=== PATIENT | male | born 1945 ===

== ENCOUNTER 2020-03-01 19:49 | Inpatient (IN) | payer MEDICARE ==
[2020-03-01] MEDS ORDERED: ASPIRIN 325 MG TAB PO ONE (20:29)
[2020-03-01 21:25] LABS: Hematocrit 29.5 % (35.5-45.6); Mean Corpuscular HGB Conc 34 % (32-34); Mean Corpuscular Volume 101 fl (84-94); Platelet Count 297 K/mm3 (140-440); Red Blood Count 2.92 M/mm3 (3.65-5.03); Red Cell Distribution Width 19.5 % (13.2-15.2)
[2020-03-01 21:46] LABS: BUN/Creatinine Ratio 30; Blood Urea Nitrogen 27 mg/dL (9-20); Calcium 8.7 mg/dL (8.4-10.2); Hemolysis Index 4
--- NOTE | 2020-03-01 21:59 | XRay Report ---
CHEST 1 VIEW INDICATION / CLINICAL INFORMATION: Chest Pain. COMPARISON: None available. FINDINGS: SUPPORT DEVICES: None. HEART / MEDIASTINUM: Mildly enlarged cardiac silhouette. No significant abnormality of the hilar or m ediastinal contours. LUNGS / PLEURA: Moderate scattered irregular opacities throughout both lungs, worse on the left. Left lung also demonstrates hazy interstitial opacification and consolidative change at the base. Possibl e small left pleural effusion. No pneumothorax. ADDITIONAL FINDINGS: No significant additional findings. IMPRESSION: 1. Scattered bilateral airspace disease, worse in the left with possible small left pleural effusion. Findings could represent multifocal pneumonia. Recommend clinical correlation and continued follow-u p until resolution. Signer Name: Leonel Dao MD Signed: 03/01/2020 9:54 PM Workstation Name: [id number]
[2020-03-01 22:15] LABS: Band Neutrophils # (Manual) 0.1 K/mm3; Basophils % (Manual) 0 % (0.0-1.8); Eosinophils % (Manual) 0 % (0.0-4.3); Total Cells Counted 100
[2020-03-01 22:16] LABS: Poikilocytosis Few
[2020-03-01 22:17] LABS: Anisocytosis Few; Ovalocytes Few; Tear Drop Cells Rare
[2020-03-01 22:19] LABS: Burr Cells Rare; Schistocytes Rare
[2020-03-01 22:20] LABS: Helmet Cells Rare; Platelet Estimate Consistent w Auto
[2020-03-02] MEDS ORDERED: cefTRIAXone/NS 1 GM/50 ML 1 GM/50 ML BAG IV ONE ×2 (11:06→15:22)
--- NOTE | 2020-03-02 11:06 | Emergency Department Report ---
ED General Adult HPI - General Chief complaint: Dyspnea/Respdistress Stated complaint: SOB Time Seen by Provider: 03/02/20 10:27 Source: patient, EMS Mode of arrival: Wheelchair Limitations: No Limitations - History of Present Illness Initial comments: This is a 74-year-old man who is a poor historian. He states that he has no medical history and he does not take any regular medicines. He states that he had a negative Covid test 2 days ago. When asked why he decided to have the test done he simply stated, "because I could". He states the reason why he came in today is because he "smoked a cigarette and felt dizzy". He has no history of atrial fibrillation. He was found to be in June atrial fibrillation. X-ray was obtained prior to my arrival and was consistent with multifocal pneumonia which I thought was reasonably consistent with Covid. On the other hand, the patient is not referring fever chills or cough. His sat was remarkably normal on room air despite an x-ray that does show diffuse infiltrate. Patient denies chest pain. He states he feels somewhat strange. He does not report change in taste or smell. He largely is not complaining of anything at the time of my encounter. He is unaware of his irregular heart rhythm. -: Gradual, hour(s), days(s) Improves with: none Worsens with: none Associated Symptoms: denies other symptoms - Related Data Allergies Allergy/AdvReac Type Severity Reaction Status Date / Time No Known Allergies Allergy Unverified 03/01/20 20:24 ED Review of Systems ROS: Stated complaint: SOB Other details as noted in HPI Constitutional: weakness, other (Dizziness). denies: chills, fever Eyes: denies: eye pain, eye discharge, vision change ENT: denies: ear pain, throat pain Respiratory: denies: cough, shortness of breath, wheezing Cardiovascular: denies: chest pain, palpitations Endocrine: no symptoms reported Gastrointestinal: denies: abdominal pain, nausea, diarrhea Genitourinary: denies: urgency, dysuria Musculoskeletal: denies: back pain, joint swelling, arthralgia Skin: denies: rash, lesions Neurological: denies: headache, weakness, paresthesias Psychiatric: denies: anxiety, depression Hematological/Lymphatic: denies: easy bleeding, easy bruising ED Past Medical Hx - Past Medical History Hx Diabetes: Yes - Surgical History Past Surgical History?: No - Social History Smoking Status: Never Smoker Substance Use Type: None ED Physical Exam - General Limitations: No Limitations General appearance: alert, in no apparent distress, other (Tachypneic) - Head Head exam: Present: atraumatic, normocephalic - Eye Eye exam: Present: normal appearance. Absent: scleral icterus - ENT ENT exam: Present: mucous membranes moist - Neck Neck exam: Present: normal inspection - Respiratory Respiratory exam: Present: normal lung sounds bilaterally. Absent: respiratory distress, wheezes, rales, rhonchi, stridor - Cardiovascular Cardiovascular Exam: Present: regular rate, normal rhythm. Absent: systolic murmur, diastolic murmur, rubs, gallop - GI/Abdominal GI/Abdominal exam: Present: soft, normal bowel sounds. Absent: distended - Rectal Rectal exam: Present: deferred - Extremities Exam Extremities exam: Present: normal inspection - Back Exam Back exam: Present: normal inspection - Neurological Exam Neurological exam: Present: alert, oriented X3, CN II-XII intact. Absent: motor sensory deficit - Psychiatric Psychiatric exam: Present: normal affect, normal mood - Skin Skin exam: Present: warm, dry, intact, normal color. Absent: rash ED Course Vital Signs 03/01/20 03/02/20 03/02/20 20:26 04:56 10:10 Temperature 97.8 F 97.8 F Pulse Rate 94 H 76 Respiratory 18 17 Rate Blood Pressure 157/91 175/88 189/99 O2 Sat by Pulse 100 98 Oximetry 03/02/20 11:01 Temperature Pulse Rate Respiratory Rate Blood Pressure 189/99 O2 Sat by Pulse 98 Oximetry - Reevaluation(s) Reevaluation #1: Discussed with hospitalist. Patient will be admitted. 03/02/20 12:29 ED Medical Decision Making - Lab Data Result diagrams: 03/01/20 20:41 03/02/20 10:48 Laboratory Results - last 24 hr 03/01/20 03/01/20 03/01/20 20:41 20:41 23:30 WBC 8.6 RBC 2.92 L Hgb 10.0 L Hct 29.5 L MCV 101 H MCH 34 H MCHC 34 RDW 19.5 H Plt Count 297 Add Manual Diff Complete Total Counted 100 Seg Neuts % (Manual) 73.0 H Band Neutrophils % 1.0 Lymphocytes % (Manual) 8.0 L Reactive Lymphs % (Man) 0 Monocytes % (Manual) 14.0 H Eosinophils % (Manual) 0 Basophils % (Manual) 0 Metamyelocytes % 4.0 Myelocytes % 0 Promyelocytes % 0 Blast Cells % 0 Nucleated RBC % Not Reportable Seg Neutrophils # Man 6.3 Band Neutrophils # 0.1 Lymphocytes # (Manual) 0.7 L Abs React Lymphs (Man) 0.0 Monocytes # (Manual) 1.2 H Eosinophils # (Manual) 0.0 Basophils # (Manual) 0.0 Metamyelocytes # 0.3 Myelocytes # 0.0 Promyelocytes # 0.0 Blast Cells # 0.0 WBC Morphology Not Reportable Hypersegmented Neuts Not Reportable Hyposegmented Neuts Not Reportable Hypogranular Neuts Not Reportable Smudge Cells Not Reportable Toxic Granulation Not Reportable Toxic Vacuolation Not Reportable Dohle Bodies Not Reportable Pelger-Huet Anomaly Not Reportable Bess Rods Not Reportable Platelet Estimate Consistent w auto Clumped Platelets Not Reportable Plt Clumps, EDTA Not Reportable Large Platelets Not Reportable Giant Platelets Not Reportable Platelet Satelliting Not Reportable Plt Morphology Comment Not Reportable RBC Morphology Not Reportable Dimorphic RBCs Not Reportable Polychromasia Not Reportable Hypochromasia Not Reportable Poikilocytosis Few Anisocytosis Few Microcytosis Not Reportable Macrocytosis Not Reportable Spherocytes Not Reportable Pappenheimer Bodies Not Reportable Sickle Cells Not Reportable Target Cells Not Reportable Tear Drop Cells Rare Ovalocytes Few Helmet Cells Rare Olivares-Lennox Bodies Not Reportable [place] Rings Not Reportable Epes Cells Rare Bite Cells Not Reportable Crenated Cell Not Reportable Elliptocytes Not Reportable Acanthocytes (Spur) Few Rouleaux Not Reportable Hemoglobin C Crystals Not Reportable Schistocytes Rare Malaria parasites Not Reportable Kush Bodies Not Reportable Hem Pathologist Commnt No Sodium 140 Potassium 4.2 Chloride 107.4 H Carbon Dioxide 23 Anion Gap 14 BUN 27 H Creatinine 0.9 Estimated GFR > 60 BUN/Creatinine Ratio 30 Glucose 85 Calcium 8.7 Troponin T < 0.010 < 0.010 - EKG Data -: EKG Interpreted by [place] Rate: normal - EKG Data Interpretation: other - Radiology Data Radiology results: report reviewed, image reviewed IMPRESSION: 1. Scattered bilateral airspace disease, worse in the left with possible small left pleural effusion. Findings could represent multifocal pneumonia. Recommend clinical correlation and continued follow-up until resolution. Critical care attestation.: If time is entered above; I have spent that time in minutes in the direct care of this critically ill patient, excluding procedure time. ED Disposition Clinical Impression: Person under investigation for COVID-19 Bilateral pneumonia Qualifiers: Pneumonia type: due to unspecified organism Lung location: unspecified part of lung Qualified Code(s): J18.9 - Pneumonia, unspecified organism Atrial fibrillation Qualifiers: Atrial fibrillation type: unspecified Qualified Code(s): I48.91 - Unspecified atrial fibrillation Disposition: [id number] OP ADMIT IP TO THIS HOSP Is pt being admited?: Yes Does the pt Need Aspirin: Yes Condition: Stable Instructions: Bacterial Pneumonia (ED) Referrals: PRIMARY CARE, [Primary Care Provider] - 3-5 Days Time of Disposition: 12:30
[2020-03-02] MEDS ORDERED: AZITHROMYCIN 500 MG in SODIUM CHLORIDE 0.9% 250ML 250 ML IV NR (11:30)
[2020-03-02] MEDS ORDERED: SODIUM CHLORIDE 0.9% 1000 ML 1,000 ML IV ONE (11:31)
[2020-03-02 11:55] LABS: Creatine Kinase MB 2.7 ng/mL (0.0-4.0)
[2020-03-02 11:56] LABS: Albumin 3.7 g/dL (3.9-5); Bilirubin,Direct 0.3 mg/dL (0-0.2); C-Reactive Protein 2.2 mg/dL (0.00-1.30); INR 1.06 (0.87-1.13)
[2020-03-02 11:59] LABS: Partial Thromboplastin Time 31.2 Sec. (24.2-36.6)
--- NOTE | 2020-03-02 14:37 | History and Physical Report ---
History of Present Illness Chief complaint: I feel weak, my heart is beating fast, and it hard to breathe History of present illness: 74 YO Male with DM, Vascular Dementia, Cerebral Atherosclerosis, Nicotine Dependence presents to ED for evaluation. Patient states that he has been "not feeling well" over the past 5 days with acutely worsening symptoms over the last 3 days. Patient also acknowledges chest palpitations. Patient acknowledges malaise, fatigue, decreased exercise tolerance, shortness of breath, subjective fever. Pt states that he "felt dizzy" after smoking a cigarette. EMS was notified and upon arrival the patient was found to be in respiratory distress. Patient was found to have a pulse oximetry of 88% on room air and was placed on supplemental oxygen and transported to [facility] for further care and evaluation of the aforementioned symptoms. Patient was seen and evaluated in the emergency department. All lab and imaging studies reviewed. Patient was found to have a pulse oximetry of 87% with exertion and was placed on supplemental oxygen with improvement in symptoms. Patient symptoms are consistent with acute hypoxemic respiratory failure. Patient underwent chest x-ray and was found to have evidence of bilateral pneumonia. Patient admitted to medical floor and initiated on pneumonia protocol as well as coronavirus protocol. The patient was also found to have new onset atrial fibrillation on EKG with a controlled ventricular rate. Cardiology team consulted in ED. Patient denies chills, chest pain, productive cough, skin rash, or recent ill contacts. Pt unsure of coronavirus exposure, but took a coronavirus test 2 days ago which was reported as negative. No prior admission for review. No mediation listed at time of admission for reconciliation. Past History Past Medical History: diabetes, other (See HPI) Past Surgical History: No surgical history, Other (Reviewed) Social history: single, smoking. denies: alcohol abuse Family history: diabetes, hypertension Medications and Allergies Allergies Allergy/AdvReac Type Severity Reaction Status Date / Time No Known Allergies Allergy Unverified 03/01/20 20:24 Active Meds: Active Medications Sodium Chloride (Nacl 0.9% 1000 Ml) 1,000 mls @ 125 mls/hr IV ONCE ONE Stop: 03/02/20 19:30 Last Admin: 03/02/20 11:54 Dose: 125 mls/hr Documented by: Review of Systems Constitutional: fever, fatigue, weakness, malaise Ears, nose, mouth and throat: no ear pain, no ear discharge, no tinnitis, no decreased hearing, no nose pain Cardiovascular: palpitations, shortness of breath, no chest pain, no edema, no syncope, no dyspnea on exertion, no paroxysmal nocturnal dyspnea Respiratory: no cough, no cough with sputum, no excessive sputum, no hemoptysis Gastrointestinal: no abdominal pain, no nausea, no vomiting, no diarrhea Genitourinary Male: no hematuria, no flank pain, no discharge, no urinary frequency, no urinary hesitancy Rectal: no pain, no incontinence, no bleeding Musculoskeletal: no neck stiffness, no neck pain, no shooting arm pain, no arm numbness/tingling, no low back pain Integumentary: no rash, no pruritis, no redness, no sores, no wounds Neurological: no transient paralysis, no paralysis, no weakness, no parathesias, no numbness, no seizures Psychiatric: no anxiety, no memory loss, no change in sleep habits, no sleep disturbances, no hypersomnia, no change in appetite, no change in libido Endocrine: no cold intolerance, no heat intolerance, no polyphagia, no excessive thirst, no nocturia Hematologic/Lymphatic: no easy bruising, no easy bleeding, no lymphedema Allergic/Immunologic: no allergic rhinitis, no wheezing, no anaphylaxis Exam - Constitutional Vitals: Temp Pulse Resp BP Pulse Ox 97.8 F 76 17 189/99 98 03/02/20 04:56 03/02/20 04:56 03/02/20 04:56 03/02/20 11:01 03/02/20 11:01 General appearance: Present: mild distress - EENT Eyes: Present: PERRL ENT: hearing intact, clear oral mucosa - Neck Neck: Present: supple, normal ROM - Respiratory Respiratory effort: normal Respiratory: bilateral: diminished, rhonchi - Cardiovascular Rhythm: irregularly irregular Heart Sounds: Present: S1 & S2. Absent: rub, click - Extremities Extremities: pulses symmetrical, No edema Peripheral Pulses: within normal limits - Abdominal General gastrointestinal: Present: soft, non-tender, non-distended, normal bowel sounds Male genitourinary: Present: normal - Integumentary Integumentary: Present: clear, warm, dry - Musculoskeletal Musculoskeletal: gait normal, strength equal bilaterally - Psychiatric Psychiatric: appropriate mood/affect, intact judgment & insight - Neurologic Neurologic: CNII-XII intact, moves all extremities HEART Score - HEART Score Troponin: Troponin T < 0.010 ng/mL (0.00-0.029) 03/02/20 10:48 Results - Labs CBC & Chem 7: 03/01/20 20:41 03/02/20 10:48 Labs: Abnormal lab results 03/01/20 03/01/20 12 Range/Units 20:41 20:41 10:48 RBC 2.92 L (3.65-5.03) M/mm3 Hgb 10.0 L (11.8-15.2) gm/dl Hct 29.5 L (35.5-45.6) % MCV 101 H (84-94) fl MCH 34 H (28-32) pg RDW 19.5 H (13.2-15.2) % Seg Neuts % (Manual) 73.0 H (40.0-70.0) % Lymphocytes % (Manual) 8.0 L (13.4-35.0) % Monocytes % (Manual) 14.0 H (0.0-7.3) % Lymphocytes # (Manual) 0.7 L (1.2-5.4) K/mm3 Monocytes # (Manual) 1.2 H (0.0-0.8) K/mm3 D-Dimer 1362.09 H (0-234) ng/mlDDU Chloride 107.4 H (98-107) mmol/L BUN 27 H (9-20) mg/dL Glucose (75-100) mg/dL Total Bilirubin (0.1-1.2) mg/dL Direct Bilirubin (0-0.2) mg/dL Lactate Dehydrogenase (91-180) units/L Total Creatine Kinase (55-170) units/L CK-MB (CK-2) Rel Index (0-4) C-Reactive Protein (0.00-1.30) mg/dL Albumin (3.9-5) g/dL 03/02/20 Range/Units 10:48 RBC (3.65-5.03) M/mm3 Hgb (11.8-15.2) gm/dl Hct (35.5-45.6) % MCV (84-94) fl MCH (28-32) pg RDW (13.2-15.2) % Seg Neuts % (Manual) (40.0-70.0) % Lymphocytes % (Manual) (13.4-35.0) % Monocytes % (Manual) (0.0-7.3) % Lymphocytes # (Manual) (1.2-5.4) K/mm3 Monocytes # (Manual) (0.0-0.8) K/mm3 D-Dimer (0-234) ng/mlDDU Chloride (98-107) mmol/L BUN (9-20) mg/dL Glucose 72 L (75-100) mg/dL Total Bilirubin 1.30 H (0.1-1.2) mg/dL Direct Bilirubin 0.3 H (0-0.2) mg/dL Lactate Dehydrogenase 719 H (91-180) units/L Total Creatine Kinase 28 L (55-170) units/L CK-MB (CK-2) Rel Index 9.6 H (0-4) C-Reactive Protein 2.20 H (0.00-1.30) mg/dL Albumin 3.7 L (3.9-5) g/dL Assessment and Plan - Patient Problems (1) Acute hypoxemic respiratory failure Current Visit: Yes Status: Acute Plan to address problem: Supplemental oxygen, nebulizer therapy, chest x-ray, pulse oximetry, prone positioning while in bed, pulmonary toilet. (2) Nicotine dependence Current Visit: Yes Status: Acute Qualifiers: Nicotine product type: cigarettes Substance use status: in withdrawal Qualified Code(s): F17.213 - Nicotine dependence, cigarettes, with withdrawal Plan to address problem: Supportive care, smoking cessation counseling, behavior change counseling, +15 minutes. (3) Atrial fibrillation Current Visit: Yes Status: Acute Qualifiers: Atrial fibrillation type: paroxysmal Qualified Code(s): I48.0 - Paroxysmal atrial fibrillation Plan to address problem: EKG, rate currently controlled, supportive care, cardiology team consulted in ED, thyroid panel. (4) Bilateral pneumonia Current Visit: Yes Status: Acute Qualifiers: Pneumonia type: due to unspecified organism Lung location: unspecified part of lung Qualified Code(s): J18.9 - Pneumonia, unspecified organism Plan to address problem: Chest x-ray, CBC, CMP, supplemental oxygen, pulse oximetry, nebulizer therapy, IV antibiotic therapy, blood cultures. (5) Person under investigation for COVID-19 Current Visit: Yes Status: Acute Plan to address problem: Coronavirus protocol: Isolation precautions, contact precautions, IV steroid therapy, IV antibiotic therapy, pulmonary toilet, prone positioning while in bed, supportive care. Coronavirus PCR ordered and pending at time of admission. (6) DVT prophylaxis Current Visit: Yes Status: Acute Plan to address problem: SCD to bilateral lower extremities while in bed, prophylactic anticoagulation (7) Advance care planning Current Visit: Yes Status: Acute Plan to address problem: Disease education conducted, patient is full code, prognosis discussed, care plan discussed, patient knowledges understanding and agreement with care plan, +30 minutes.
[2020-03-02] MEDS ORDERED: ONDANSETRON 4 MG/2 ML INJ IV PRN (14:39)
[2020-03-02] MEDS ORDERED: ALBUTEROL 2.5 MG/3 ML NEBU IH PRN (14:39)
[2020-03-02] MEDS ORDERED: ACETAMINOPHEN 325 MG TAB PO PRN (14:39)
[2020-03-02 16:03] LABS: C-Reactive Protein 2.7 mg/dL (0.00-1.30)
[2020-03-02] MEDS: methylPREDNISolone Sod Succinate 40 MG/1 ML INJ IV SCH (16:09)
[2020-03-02 17:25] LABS: Bacteria,Urine 4+ /HPF (Negative); Bilirubin,Urine NEG (Negative); Blood,Urine NEG (Negative); Color,Urine Yellow (Yellow); Mucus,Urine 1+ /HPF; Protein,Urine <15 mg/dL mg/dL (Negative)
[2020-03-02] MEDS: HEPARIN 5,000 UNIT/1 ML VIAL SUB-Q SCH (22:39)
[2020-03-03] MEDS: methylPREDNISolone Sod Succinate 40 MG/1 ML INJ IV SCH ×3 (00:53→16:16)
[2020-03-03 06:30] LABS: Hematocrit 25.8 % (35.5-45.6); Hemoglobin 8.6 gm/dl (11.8-15.2); Mean Corpuscular HGB Conc 33 % (32-34); Mean Corpuscular Volume 99 fl (84-94); Platelet Count 272 K/mm3 (140-440); Red Cell Distribution Width 18.5 % (13.2-15.2)
[2020-03-03 07:08] LABS: Blood Urea Nitrogen 22 mg/dL (9-20); Calcium 8.2 mg/dL (8.4-10.2); Hemolysis Index 12
[2020-03-03 07:21] LABS: BUN/Creatinine Ratio 31
--- NOTE | 2020-03-03 08:21 | Progress Note ---
Assessment and Plan Assessment and plan: 74 YO Male with DM, Vascular Dementia, Cerebral Atherosclerosis, Nicotine Dependence presents to ED for evaluation. Patient states that he has been "not feeling well" over the past 5 days with acutely worsening symptoms over the last 3 days. Patient also acknowledges chest palpitations. Patient acknowledges malaise, fatigue, decreased exercise tolerance, shortness of breath, subjective fever. Pt states that he "felt dizzy" after smoking a cigarette. EMS was notified and upon arrival the patient was found to be in respiratory distress. Patient was found to have a pulse oximetry of 88% on room air and was placed on supplemental oxygen and transported to [facility] for further care and evaluation of t he aforementioned symptoms. Patient was seen and evaluated in the emergency department. All lab and imaging studies reviewed. Patient was found to have a pulse oximetry of 87% with exertion and was placed on supplemental oxygen with improvement in symptoms. Patient symptoms are consistent with acute hypoxemic respiratory failure. Patient underwent chest x-ray and was found to have evidence of bilateral pneumonia. Patient admitted to medical floor and initiated on pneumonia protocol as well as coronavirus protocol. The patient was also found to have new onset atrial fibrillation on EKG with a controlled ventricular rate. Cardiology team consulted in ED. Patient denies chills, chest pain, productive cough, skin rash, or recent ill contacts. Pt unsure of coronavirus exposure, but took a coronavirus test 2 days ago which was reported as negative. No prior admission for review. No mediation listed at time of admission for reconciliation. 03/03: Monitor anemia, H/H WITH precipitous drop. Per documentation, saturation improved. Cardiology, pulmonary and ID input as noted. Will discuss with family considering patients mental status. outpatient EGD and Colonoscopy to be deferred to the PCP. (1) Acute hypoxemic respiratory failure Current Visit: Yes Status: Acute Plan to address problem: Supplemental oxygen, nebulizer therapy, chest x-ray, pulse oximetry, prone positioning while in bed, pulmonary toilet. (2) Nicotine dependence Current Visit: Yes Status: Acute Qualifiers: Nicotine product type: cigarettes Substance use status: in withdrawal Qualified Code(s): F17.213 - Nicotine dependence, cigarettes, with withdrawal Plan to address problem: Supportive care, smoking cessation counseling, behavior change counseling, +15 minutes. (3) Atrial fibrillation Current Visit: Yes Status: Acute Qualifiers: Atrial fibrillation type: paroxysmal Qualified Code(s): I48.0 - Paroxysmal atrial fibrillation Plan to address problem: EKG, rate currently controlled, supportive care, cardiology team consulted in ED, thyroid panel. (4) Bilateral pneumonia Current Visit: Yes Status: Acute Qualifiers: Pneumonia type: due to unspecified organism Lung location: unspecified part of lung Qualified Code(s): J18.9 - Pneumonia, unspecified organism Plan to address problem: Chest x-ray, CBC, CMP, supplemental oxygen, pulse oximetry, nebulizer therapy, IV antibiotic therapy, blood cultures. (5) Person under investigation for COVID-19 Current Visit: Yes Status: Acute Plan to address problem: Coronavirus protocol: Isolation precautions, contact precautions, IV steroid therapy, IV antibiotic therapy, pulmonary toilet, prone positioning while in bed, supportive care. Coronavirus PCR ordered and pending at time of admission. (6) DVT prophylaxis Current Visit: Yes Status: Acute Plan to address problem: SCD to bilateral lower extremities while in bed, prophylactic anticoagulation (7) Advance care planning Current Visit: Yes Status: Acute Plan to address problem: Disease education conducted, patient is full code, prognosis discussed, care plan discussed, patient knowledges understanding and agreement with care plan, +30 minutes. History Interval history: Patient seen and examined today, states he is improved and with no further shortness of breath. Hospitalist Physical - Physical exam Narrative exam: General appearance: Present: mild distress - EENT Eyes: Present: PERRL ENT: hearing intact, clear oral mucosa - Neck Neck: Present: supple, normal ROM - Respiratory Respiratory effort: normal Respiratory: bilateral: diminished, rhonchi - Cardiovascular Rhythm: irregularly irregular Heart Sounds: Present: S1 & S2. Absent: rub, click - Extremities Extremities: pulses symmetrical, No edema Peripheral Pulses: within normal limits - Abdominal General gastrointestinal: Present: soft, non-tender, non-distended, normal bowel sounds Male genitourinary: Present: normal - Integumentary Integumentary: Present: clear, warm, dry - Musculoskeletal Musculoskeletal: gait normal, strength equal bilaterally - Psychiatric Psychiatric: appropriate mood/affect, intact judgment & insight - Neurologic Neurologic: CNII-XII intact, moves all extremities - Constitutional Vitals: Temp Pulse Resp BP Pulse Ox 98.2 F 80 20 169/95 98 03/02/20 23:19 03/02/20 23:19 03/02/20 23:19 03/02/20 23:19 03/02/20 23:19 General appearance: Present: mild distress HEART Score - HEART Score Troponin: Troponin T < 0.010 ng/mL (0.00-0.029) 03/02/20 10:48 Results - Labs CBC & Chem 7: 03/03/20 04:00 03/03/20 05:16 Labs: Laboratory Last Values WBC 6.3 K/mm3 (4.5-11.0) 03/03/20 04:00 RBC 2.60 M/mm3 (3.65-5.03) L 03/03/20 04:00 Hgb 8.6 gm/dl (11.8-15.2) L 03/03/20 04:00 Hct 25.8 % (35.5-45.6) L 03/03/20 04:00 MCV 99 fl (84-94) H 03/03/20 04:00 MCH 33 pg (28-32) H 03/03/20 04:00 MCHC 33 % (32-34) 03/03/20 04:00 RDW 18.5 % (13.2-15.2) H 03/03/20 04:00 Plt Count 272 K/mm3 (140-440) 03/03/20 04:00 Add Manual Diff Complete 03/01/20 20:41 Total Counted 100 03/01/20 20:41 Seg Neutrophils % Women Specialist 03/03/20 04:00 Seg Neuts % (Manual) 73.0 % (40.0-70.0) H 03/01/20 20:41 Band Neutrophils % 1.0 % 03/01/20 20:41 Lymphocytes % (Manual) 8.0 % (13.4-35.0) L 03/01/20 20:41 Reactive Lymphs % (Man) 0 % 03/01/20 20:41 Monocytes % (Manual) 14.0 % (0.0-7.3) H 03/01/20 20:41 Eosinophils % (Manual) 0 % (0.0-4.3) 03/01/20 20:41 Basophils % (Manual) 0 % (0.0-1.8) 03/01/20 20:41 Metamyelocytes % 4.0 % 12/08/20 20:41 Myelocytes % 0 % 03/01/20 20:41 Promyelocytes % 0 % 03/01/20 20:41 Blast Cells % 0 % 03/01/20 20:41 Nucleated RBC % Not Reportable 03/01/20 20:41 Seg Neutrophils # Man 6.3 K/mm3 (1.8-7.7) 03/01/20 20:41 Band Neutrophils # 0.1 K/mm3 03/01/20 20:41 Lymphocytes # (Manual) 0.7 K/mm3 (1.2-5.4) L 03/01/20 20:41 Abs React Lymphs (Man) 0.0 K/mm3 03/01/20 20:41 Monocytes # (Manual) 1.2 K/mm3 (0.0-0.8) H 03/01/20 20:41 Eosinophils # (Manual) 0.0 K/mm3 (0.0-0.4) 03/01/20 20:41 Basophils # (Manual) 0.0 K/mm3 (0.0-0.1) 03/01/20 20:41 Metamyelocytes # 0.3 K/mm3 03/01/20 20:41 Myelocytes # 0.0 K/mm3 03/01/20 20:41 Promyelocytes # 0.0 K/mm3 03/01/20 20:41 Blast Cells # 0.0 K/mm3 03/01/20 20:41 WBC Morphology Not Reportable 03/01/20 20:41 Hypersegmented Neuts Not Reportable 03/01/20 20:41 Hyposegmented Neuts Not Reportable 03/01/20 20:41 Hypogranular Neuts Not Reportable 03/01/20 20:41 Smudge Cells Not Reportable 03/01/20 20:41 Toxic Granulation Not Reportable 03/01/20 20:41 Toxic Vacuolation Not Reportable 03/01/20 20:41 Dohle Bodies Not Reportable 03/01/20 20:41 Pelger-Huet Anomaly Not Reportable 03/01/20 20:41 Bess Rods Not Reportable 03/01/20 20:41 Platelet Estimate Consistent w auto 03/01/20 20:41 Clumped Platelets Not Reportable 03/01/20 20:41 Plt Clumps, EDTA Not Reportable 03/01/20 20:41 Large Platelets Not Reportable 03/01/20 20:41 Giant Platelets Not Reportable 03/01/20 20:41 Platelet Satelliting Not Reportable 03/01/20 20:41 Plt Morphology Comment Not Reportable 03/01/20 20:41 RBC Morphology Not Reportable 03/01/20 20:41 Dimorphic RBCs Not Reportable 03/01/20 20:41 Polychromasia Not Reportable 03/01/20 20:41 Hypochromasia Not Reportable 03/01/20 20:41 Poikilocytosis Few 03/01/20 20:41 Anisocytosis Few 03/01/20 20:41 Microcytosis Not Reportable 03/01/20 20:41 Macrocytosis Not Reportable 03/01/20 20:41 Spherocytes Not Reportable 03/01/20 20:41 Pappenheimer Bodies Not Reportable 03/01/20 20:41 Sickle Cells Not Reportable 03/01/20 20:41 Target Cells Not Reportable 03/01/20 20:41 Tear Drop Cells Rare 03/01/20 20:41 Ovalocytes Few 03/01/20 20:41 Helmet Cells Rare 03/01/20 20:41 Olivares-Breda Bodies Not Reportable 03/01/20 20:41 [place] Rings Not Reportable 03/01/20 20:41 Buddy Cells Rare 03/01/20 20:41 Bite Cells Not Reportable 03/01/20 20:41 Crenated Cell Not Reportable 03/01/20 20:41 Elliptocytes Not Reportable 03/01/20 20:41 Acanthocytes (Spur) Few 03/01/20 20:41 Rouleaux Not Reportable 03/01/20 20:41 Hemoglobin C Crystals Not Reportable 03/01/20 20:41 Schistocytes Rare 03/01/20 20:41 Malaria parasites Not Reportable 03/01/20 20:41 Kush Bodies Not Reportable 03/01/20 20:41 Hem Pathologist Commnt No 03/01/20 20:41 PT 13.7 Sec. (12.2-14.9) 03/02/20 10:48 INR 1.06 (0.87-1.13) 03/02/20 10:48 APTT 31.2 Sec. (24.2-36.6) 03/02/20 10:48 D-Dimer 1526.43 ng/mlDDU (0-234) H 03/02/20 15:03 Sodium 142 mmol/L (137-145) 03/03/20 05:16 Potassium 4.4 mmol/L (3.6-5.0) 03/03/20 05:16 Chloride 109.5 mmol/L (98-107) H 03/03/20 05:16 Carbon Dioxide 26 mmol/L (22-30) 03/03/20 05:16 Anion Gap 11 mmol/L 03/03/20 05:16 BUN 22 mg/dL (9-20) H 03/03/20 05:16 Creatinine 0.7 mg/dL (0.8-1.3) L 03/03/20 05:16 Estimated GFR > 60 ml/min 03/03/20 05:16 BUN/Creatinine Ratio 31 % 03/03/20 05:16 Glucose 112 mg/dL (75-100) H 03/03/20 05:16 POC Glucose 136 mg/dL (70-105) H 03/02/20 17:54 Calcium 8.2 mg/dL (8.4-10.2) L 03/03/20 05:16 Magnesium 1.90 mg/dL (1.7-2.3) 03/02/20 10:48 Ferritin 268.1 ng/mL (30.0-300.0) 03/02/20 15:03 Total Bilirubin 1.30 mg/dL (0.1-1.2) H 03/02/20 10:48 Direct Bilirubin 0.3 mg/dL (0-0.2) H 03/02/20 10:48 Indirect Bilirubin 1.0 mg/dL 03/02/20 10:48 AST 18 units/L (5-40) 03/02/20 10:48 ALT 46 units/L (7-56) 03/02/20 10:48 Alkaline Phosphatase 60 units/L (35-129) 03/02/20 10:48 Lactate Dehydrogenase 788 units/L (91-180) H 03/02/20 15:03 Total Creatine Kinase 28 units/L (55-170) L 03/02/20 10:48 CK-MB (CK-2) 2.7 ng/mL (0.0-4.0) 03/02/20 10:48 CK-MB (CK-2) Rel Index 9.6 (0-4) H 03/02/20 10:48 Troponin T < 0.010 ng/mL (0.00-0.029) 03/02/20 10:48 C-Reactive Protein 2.70 mg/dL (0.00-1.30) H 03/02/20 15:03 NT-Pro-B Natriuret Pep 606.6 pg/mL (0-900) 03/02/20 10:48 Total Protein 6.4 g/dL (6.3-8.2) 03/02/20 10:48 Albumin 3.7 g/dL (3.9-5) L 03/02/20 10:48 Albumin/Globulin Ratio 1.4 % 03/02/20 10:48 Procalcitonin 0.22 ng/mL (<0.15) 03/02/20 10:48 Urine Color Yellow (Yellow) 03/02/20 16:52 Urine Turbidity Clear (Clear) 03/02/20 16:52 Urine pH 6.0 (5.0-7.0) 03/02/20 16:52 Ur Specific [place] 1.021 (1.003-1.030) 03/02/20 16:52 Urine Protein <15 mg/dl mg/dL (Negative) 03/02/20 16:52 Urine Glucose (UA) Neg mg/dL (Negative) 03/02/20 16:52 Urine Ketones Neg mg/dL (Negative) 03/02/20 16:52 Urine Blood Neg (Negative) 03/02/20 16:52 Urine Nitrite Neg (Negative) 03/02/20 16:52 Urine Bilirubin Neg (Negative) 03/02/20 16:52 Urine Urobilinogen 2.0 mg/dL (<2.0) 03/02/20 16:52 Ur Leukocyte Esterase Mod (Negative) 03/02/20 16:52 Urine WBC (Auto) 18.0 /HPF (0.0-6.0) H 03/02/20 16:52 Urine RBC (Auto) 3.0 /HPF (0.0-6.0) 03/02/20 16:52 U Epithel Cells (Auto) 2.0 /HPF (0-13.0) 03/02/20 16:52 Urine Bacteria (Auto) 4+ /HPF (Negative) 03/02/20 16:52 Urine Mucus 1+ /HPF 03/02/20 16:52 Microbiology: Microbiology 03/02/20 10:48 Peripheral/Venous Blood Culture - Preliminary Culture in Progress 03/02/20 10:48 Peripheral/Venous Blood Culture - Preliminary Culture in Progress [place]/IV: Voiding Method Urinal IV Catheter Type [Left Peripheral IV Antecubital] Active Medications - Current Medications Current Medications: Generic Name Dose Route Start Last Admin Trade Name Freq PRN Reason Stop Dose Admin Acetaminophen 650 mg 03/02/20 14:39 Tylenol PO Q4H PRN Pain MILD(1-3)/Fever >100.5/CELESTE Albuterol 2.5 mg 03/02/20 14:39 Proventil IH Q4HRT PRN Shortness Of Breath Heparin Sodium (Porcine) 5,000 unit 03/02/20 22:00 03/02/20 22:39 Heparin SUB-Q 5,000 unit Q12HR BRIDGER Administration Ceftriaxone Sodium 2 gm in 100 mls @ 200 mls/hr 03/03/20 10:00 Rocephin/Ns 2 Gm/100 Ml IV Q24HR BRIDGER Protocol Azithromycin 500 mg/ Sodium 250 mls @ 250 mls/hr 03/03/20 10:00 Chloride IV Q24HR BRIDGER Protocol Labetalol HCl 10 mg 03/03/20 00:35 Labetalol IV Q6H PRN Hypertension Methylprednisolone Sodium Succinate 40 mg 03/02/20 16:00 03/03/20 00:53 Solu-Medrol IV 40 mg Q8H BRIDGER Administration Ondansetron HCl 4 mg 03/02/20 14:39 Zofran IV Q8H PRN Nausea And Vomiting Sodium Chloride 10 ml 03/02/20 22:00 03/02/20 22:39 Sodium Chloride Flush Syringe 10 Ml IV 10 ml BID BRIDGER Administration Sodium Chloride 10 ml 03/02/20 14:39 Sodium Chloride Flush Syringe 10 Ml IV PRN PRN LINE FLUSH
[2020-03-03 09:22] LABS: Hypersegmented Neutrophils Rare; Total Cells Counted 100
[2020-03-03 09:23] LABS: Anisocytosis 1+; Burr Cells Few; Poikilocytosis 1+; Schistocytes Few; Tear Drop Cells Few
[2020-03-03 09:24] LABS: Ovalocytes Few; Platelet Estimate Consistent w Auto
[2020-03-03] MEDS ORDERED: AZITHROMYCIN 500 MG in SODIUM CHLORIDE 0.9% 250ML 250 ML IV SCH (10:00)
--- NOTE | 2020-03-03 10:12 | Consultation ---
History of Present Illness Consult date: 03/03/20 Requesting physician: JEREMY BRAND Reason for consult: hypoxemia, other (Concern for Covid) History of present illness: 74 y/o male admitted with concern for COVID 19. Some descrepancy about sats but currently satting 94% on room air. Per patient was tested for COVID a few days ago. CXR here is abnormal. Awaiting COVID test results now. Patient is a smoker but no prior history of lung disease. Past History Past Medical History: diabetes, other (See HPI) Past Surgical History: No surgical history, Other (Reviewed) Social history: single, smoking. denies: alcohol abuse Family history: diabetes, hypertension Medications and Allergies Allergies Allergy/AdvReac Type Severity Reaction Status Date / Time No Known Allergies Allergy Unverified 03/01/20 20:24 Home Medications Medication Instructions Recorded Confirmed Last Taken Type Dexamethasone [Decadron] 6 mg PO DAILY 03/03/20 03/03/20 Unknown History Tradjenta 5 mg PO DAILY 03/03/20 03/03/20 Unknown History traZODone 50 mg PO HS 03/03/20 03/03/20 Unknown History Active Meds: Active Medications Acetaminophen (Tylenol) 650 mg PO Q4H PRN PRN Reason: Pain MILD(1-3)/Fever >100.5/CELESTE Albuterol (Proventil) 2.5 mg IH Q4HRT PRN PRN Reason: Shortness Of Breath Heparin Sodium (Porcine) (Heparin) 5,000 unit SUB-Q Q12HR [facility] Last Admin: 03/02/20 22:39 Dose: 5,000 unit Documented by: Ceftriaxone Sodium (Rocephin/Ns 2 Gm/100 Ml) 2 gm in 100 mls @ 200 mls/hr IV Q24HR BRIDGER; Protocol Azithromycin 500 mg/ Sodium (Chloride) 250 mls @ 250 mls/hr IV Q24HR BRIDGER; Protocol Labetalol HCl (Labetalol) 10 mg IV Q6H PRN PRN Reason: Hypertension Methylprednisolone Sodium Succinate (Solu-Medrol) 40 mg IV Q8H BRIDGER Last Admin: 03/03/20 00:53 Dose: 40 mg Documented by: Ondansetron HCl (Zofran) 4 mg IV Q8H PRN PRN Reason: Nausea And Vomiting Sodium Chloride (Sodium Chloride Flush Syringe 10 Ml) 10 ml IV BID BRIDGER Last Admin: 03/02/20 22:39 Dose: 10 ml Documented by: Sodium Chloride (Sodium Chloride Flush Syringe 10 Ml) 10 ml IV PRN PRN PRN Reason: LINE FLUSH Physical Examination Vital signs: Vital Signs Temp Pulse Resp BP Pulse Ox 97.8 F 94 H 18 157/91 100 03/01/20 20:26 03/01/20 20:26 03/01/20 20:26 03/01/20 20:26 03/01/20 20:26 Patient not examined in person as he is a PUI for COVID and attempting to preserve PPE during the global pandemic of COVID 19 Results - Laboratory Findings CBC and BMP: 03/04/20 04:52 03/04/20 04:52 PT/INR, D-dimer PT 13.7 Sec. (12.2-14.9) 03/02/20 10:48 INR 1.06 (0.87-1.13) 03/02/20 10:48 D-Dimer 1526.43 ng/mlDDU (0-234) H 03/02/20 15:03 Abnormal lab findings: Abnormal Labs 03/01/20 03/01/20 03/02/20 20:41 20:41 10:48 RBC 2.92 L Hgb 10.0 L Hct 29.5 L MCV 101 H MCH 34 H RDW 19.5 H Seg Neuts % (Manual) 73.0 H Lymphocytes % (Manual) 8.0 L Monocytes % (Manual) 14.0 H Lymphocytes # (Manual) 0.7 L Monocytes # (Manual) 1.2 H D-Dimer 1362.09 H Chloride 107.4 H BUN 27 H Creatinine Glucose POC Glucose Calcium Total Bilirubin Direct Bilirubin Lactate Dehydrogenase Total Creatine Kinase CK-MB (CK-2) Rel Index C-Reactive Protein Albumin Urine WBC (Auto) 03/02/20 03/02/20 03/02/20 10:48 15:03 15:03 RBC Hgb Hct MCV MCH RDW Seg Neuts % (Manual) Lymphocytes % (Manual) Monocytes % (Manual) Lymphocytes # (Manual) Monocytes # (Manual) D-Dimer 1526.43 H Chloride BUN Creatinine Glucose 72 L POC Glucose Calcium Total Bilirubin 1.30 H Direct Bilirubin 0.3 H Lactate Dehydrogenase 719 H 788 H Total Creatine Kinase 28 L CK-MB (CK-2) Rel Index 9.6 H C-Reactive Protein 2.20 H 2.70 H Albumin 3.7 L Urine WBC (Auto) 03/02/20 03/02/20 03/03/20 16:52 17:54 04:00 RBC 2.60 L Hgb 8.6 L Hct 25.8 L MCV 99 H MCH 33 H RDW 18.5 H Seg Neuts % (Manual) 87.0 H Lymphocytes % (Manual) 7.0 L Monocytes % (Manual) Lymphocytes # (Manual) 0.4 L Monocytes # (Manual) D-Dimer Chloride BUN Creatinine Glucose POC Glucose 136 H Calcium Total Bilirubin Direct Bilirubin Lactate Dehydrogenase Total Creatine Kinase CK-MB (CK-2) Rel Index C-Reactive Protein Albumin Urine WBC (Auto) 18.0 H 03/03/20 05:16 RBC Hgb Hct MCV MCH RDW Seg Neuts % (Manual) Lymphocytes % (Manual) Monocytes % (Manual) Lymphocytes # (Manual) Monocytes # (Manual) D-Dimer Chloride 109.5 H BUN 22 H Creatinine 0.7 L Glucose 112 H POC Glucose Calcium 8.2 L Total Bilirubin Direct Bilirubin Lactate Dehydrogenase Total Creatine Kinase CK-MB (CK-2) Rel Index C-Reactive Protein Albumin Urine WBC (Auto) - Diagnostic Findings Chest x-ray: report reviewed, image reviewed Assessment and Plan 74 y/o male smoker with dizziness after smoking a cigarette. 1. Agree with PUI status, follow up COVID testing 2. Agree with CAP coverage 3. Ok with steroids given history of tobacco abuse 4. If COVID negative, consider CT of chest without contrast for a better look at lung parenchyma 5. Needs better BP control
--- NOTE | 2020-03-03 10:13 | Consultation ---
History of Present Illness - Reason for Consult Consult date: 03/03/20 Multifocal pneumonia Requesting physician: JEREMY BRAND - History of Present Illness 74 years old male with history of diabetes mellitus, dementia, tobacco abuse, admitted on 02/27/2020 secondary to 5-day history of generalized malaise, fatigue, subjective fever, dry cough, dyspnea on exertion and shortness of breath. Patient also noticed some dizziness. Upon EMS evaluation his O2 sat were found at 88% on room air. On arrival, temperature 97.8, O2 sat 94% down to 83% on room air, RR 18, BP 157/91. Initial WBC 8.6. Creatinine 0.9. D-dimer 1526. Ferritin 236. Procalcitonin 0.2. Urinalysis with 18 WBCs moderate leukocyte esterase. Chest x-ray with bilateral airspace disease. Blood culture 03/02/2020 no growth today. Patient currently on 2 L nasal cannula. Chest x-ray shows bilateral infiltrates. On EKG found to have new onset atrial fibrillation. Patient tested negative for COVID-19 2 days before admission. Review of Systems: reviewed ED and H&P notes. Deferred to prevent COVID-19 transmission. Past History Past Medical History: diabetes, other (See HPI) Past Surgical History: No surgical history, Other (Reviewed) Social history: single, smoking. denies: alcohol abuse Family history: diabetes, hypertension Medications and Allergies Allergies Allergy/AdvReac Type Severity Reaction Status Date / Time No Known Allergies Allergy Unverified 03/01/20 20:24 Home Medications Medication Instructions Recorded Confirmed Last Taken Type Dexamethasone [Decadron] 6 mg PO DAILY 03/03/20 03/03/20 Unknown History Tradjenta 03/03/20 Unknown History traZODone 50 mg PO HS 03/03/20 03/03/20 Unknown History Active Meds: Active Medications Acetaminophen (Tylenol) 650 mg PO Q4H PRN PRN Reason: Pain MILD(1-3)/Fever >100.5/CELESTE Albuterol (Proventil) 2.5 mg IH Q4HRT PRN PRN Reason: Shortness Of Breath Heparin Sodium (Porcine) (Heparin) 5,000 unit SUB-Q Q12HR [facility] Last Admin: 03/02/20 22:39 Dose: 5,000 unit Documented by: Ceftriaxone Sodium (Rocephin/Ns 2 Gm/100 Ml) 2 gm in 100 mls @ 200 mls/hr IV Q24HR [facility]; Protocol Azithromycin 500 mg/ Sodium (Chloride) 250 mls @ 250 mls/hr IV Q24HR [facility]; Pr otocol Labetalol HCl (Labetalol) 10 mg IV Q6H PRN PRN Reason: Hypertension Methylprednisolone Sodium Succinate (Solu-Medrol) 40 mg IV Q8H [facility] Last Admin: 03/03/20 00:53 Dose: 40 mg Documented by: Ondansetron HCl (Zofran) 4 mg IV Q8H PRN PRN Reason: Nausea And Vomiting Sodium Chloride (Sodium Chloride Flush Syringe 10 Ml) 10 ml IV BID [facility] Last Admin: 03/02/20 22:39 Dose: 10 ml Documented by: Sodium Chloride (Sodium Chloride Flush Syringe 10 Ml) 10 ml IV PRN PRN PRN Reason: LINE FLUSH Physical Examination - Physical Exam Narrative exam: Physical Exam: reviewed ED and hospitalist notes. Deferred to prevent COVID-19 transmission. - Constitutional Vitals: Vital Signs Temp Pulse Resp BP Pulse Ox 98.2 F 80 20 169/95 94 03/02/20 23:19 03/02/20 23:19 03/02/20 23:19 03/02/20 23:19 03/03/20 08:25 Temperature -Last 24 Hours Temperature 98.2 F Results - Labs CBC & Chem 7: 03/03/20 04:00 03/03/20 05:16 Labs: Abnormal lab results 03/01/20 03/02/20 03/02/20 Range/Units 20:41 10:48 10:48 RBC 2.92 L (3.65-5.03) M/mm3 Hgb 10.0 L (11.8-15.2) gm/dl Hct 29.5 L (35.5-45.6) % MCV 101 H (84-94) fl MCH 34 H (28-32) pg RDW 19.5 H (13.2-15.2) % Seg Neuts % (Manual) 73.0 H (40.0-70.0) % Lymphocytes % (Manual) 8.0 L (13.4-35.0) % Monocytes % (Manual) 14.0 H (0.0-7.3) % Lymphocytes # (Manual) 0.7 L (1.2-5.4) K/mm3 Monocytes # (Manual) 1.2 H (0.0-0.8) K/mm3 D-Dimer 1362.09 H (0-234) ng/mlDDU Chloride (98-107) mmol/L BUN (9-20) mg/dL Creatinine (0.8-1.3) mg/dL Glucose 72 L (75-100) mg/dL POC Glucose (70-105) mg/dL Calcium (8.4-10.2) mg/dL Total Bilirubin 1.30 H (0.1-1.2) mg/dL Direct Bilirubin 0.3 H (0-0.2) mg/dL Lactate Dehydrogenase 719 H (91-180) units/L Total Creatine Kinase 28 L (55-170) units/L CK-MB (CK-2) Rel Index 9.6 H (0-4) C-Reactive Protein 2.20 H (0.00-1.30) mg/dL Albumin 3.7 L (3.9-5) g/dL Urine WBC (Auto) (0.0-6.0) /HPF 03/02/20 03/02/20 03/02/20 Range/Units 15:03 15:03 16:52 RBC (3.65-5.03) M/mm3 Hgb (11.8-15.2) gm/dl Hct (35.5-45.6) % MCV (84-94) fl MCH (28-32) pg RDW (13.2-15.2) % Seg Neuts % (Manual) (40.0-70.0) % Lymphocytes % (Manual) (13.4-35.0) % Monocytes % (Manual) (0.0-7.3) % Lymphocytes # (Manual) (1.2-5.4) K/mm3 Monocytes # (Manual) (0.0-0.8) K/mm3 D-Dimer 1526.43 H (0-234) ng/mlDDU Chloride (98-107) mmol/L BUN (9-20) mg/dL Creatinine (0.8-1.3) mg/dL Glucose (75-100) mg/dL POC Glucose (70-105) mg/dL Calcium (8.4-10.2) mg/dL Total Bilirubin (0.1-1.2) mg/dL Direct Bilirubin (0-0.2) mg/dL Lactate Dehydrogenase 788 H (91-180) units/L Total Creatine Kinase (55-170) units/L CK-MB (CK-2) Rel Index (0-4) C-Reactive Protein 2.70 H (0.00-1.30) mg/dL Albumin (3.9-5) g/dL Urine WBC (Auto) 18.0 H (0.0-6.0) /HPF 03/02/20 03/03/20 03/03/20 Range/Units 17:54 04:00 05:16 RBC 2.60 L (3.65-5.03) M/mm3 Hgb 8.6 L (11.8-15.2) gm/dl Hct 25.8 L (35.5-45.6) % MCV 99 H (84-94) fl MCH 33 H (28-32) pg RDW 18.5 H (13.2-15.2) % Seg Neuts % (Manual) 87.0 H (40.0-70.0) % Lymphocytes % (Manual) 7.0 L (13.4-35.0) % Monocytes % (Manual) (0.0-7.3) % Lymphocytes # (Manual) 0.4 L (1.2-5.4) K/mm3 Monocytes # (Manual) (0.0-0.8) K/mm3 D-Dimer (0-234) ng/mlDDU Chloride 109.5 H (98-107) mmol/L BUN 22 H (9-20) mg/dL Creatinine 0.7 L (0.8-1.3) mg/dL Glucose 112 H (75-100) mg/dL POC Glucose 136 H (70-105) mg/dL Calcium 8.2 L (8.4-10.2) mg/dL Total Bilirubin (0.1-1.2) mg/dL Direct Bilirubin (0-0.2) mg/dL Lactate Dehydrogenase (91-180) units/L Total Creatine Kinase (55-170) units/L CK-MB (CK-2) Rel Index (0-4) C-Reactive Protein (0.00-1.30) mg/dL Albumin (3.9-5) g/dL Urine WBC (Auto) (0.0-6.0) /HPF Assessment and Plan Cultures: Blood culture pending SARS CoV2 PCR pending Assessment: 74 years old male with history of diabetes mellitus, dementia, tob acco abuse, admitted on 03/01/2020 secondary to 5-day history of generalized malaise, fatigue, subjective fever, dry cough, dyspnea on exertion and shortness of breath: #Bilateral pneumonia: Suspected COVID-19 pneumonia versus community-acquired pneumonia. #Acute hypoxemic respiratory failure: Initial sats dropped to 83%. Patient currently on 2 L nasal cannula. #Acute UTI: UA consistent with UTI. Recommendations: -Start Dexamethasone 6 mg IV/PO daily for now -Follow SARS-CoV-2 PCR, if positive please start remdesivir total 5 days -Monitor inflammatory markers - ferritin, Ddimer, CRP, LDH -Continue ceftriaxone and azithromycin, procalcitonin 0.25 ng/mL, to cover co mmunity-acquired pneumonia and UTI -Continue anticoagulation per System Protocol -Prone positioning as possible -Follow-up urine culture All laboratory, cultures and imaging were reviewed. Will follow Starla Rodriguez MD Infectious Diseases Captain Waiter/Waitress
[2020-03-03] MEDS: cefTRIAXone/NS 2 GM/100 ML 2 GM/100 ML BAG IV SCH (10:30)
[2020-03-03] MEDS: HEPARIN 5,000 UNIT/1 ML VIAL SUB-Q SCH ×2 (10:30→22:01)
--- NOTE | 2020-03-03 11:01 | Consultation ---
History of Present Illness Consult date: 03/03/20 Requesting physician: JACOB RICK Consult reason: atrial fibrillation History of present illness: The pt is a 74 year old male with a past medical history of diabetes mellitus, dementia, tobacco abuse. He is previously unknown to our practice. He is COVID- 19 PUI and thus HPI is obtained per the chart. He presented yesterday with c/o generalized malaise, fatigue, subjective fever, dry cough, dyspnea on exertion and shortness of breath. Patient also noticed some dizziness. Upon EMS evaluation his O2 sat were found at 88% on room air. On arrival, temperature 97.8, O2 sat 94% down to 83% on room air. Admission CXR shows scattered bilateral infiltrates. Labwork significant for H/H 8.6/25.8, elevated DDimer, UTI. Patient reportedly tested negative for COVID-19 two days before admission. Cardiology has been consulted for reported AFib with CVR noted at admission. However, review of admission ECG and telemetry does not show any atrial fibrillation, SR with freq PACs noted. Past History Past Medical History: diabetes, other (See HPI) Past Surgical History: No surgical history, Other (Reviewed) Social history: single, smoking. denies: alcohol abuse Family history: diabetes, hypertension Medications and Allergies Allergies Allergy/AdvReac Type Severity Reaction Status Date / Time No Known Allergies Allergy Unverified 03/01/20 20:24 Home Medications Medication Instructions Recorded Confirmed Last Taken Type Dexamethasone [Decadron] 6 mg PO DAILY 03/03/20 03/03/20 Unknown History Tradjenta 03/03/20 Unknown History traZODone 50 mg PO HS 03/03/20 03/03/20 Unknown History Active Meds: Active Medications Acetaminophen (Tylenol) 650 mg PO Q4H PRN PRN Reason: Pain MILD(1-3)/Fever >100.5/CELESTE Albuterol (Proventil) 2.5 mg IH Q4HRT PRN PRN Reason: Shortness Of Breath Heparin Sodium (Porcine) (Heparin) 5,000 unit SUB-Q Q12HR [facility] Last Admin: 03/03/20 10:30 Dose: 5,000 unit Documented by: Ceftriaxone Sodium (Rocephin/Ns 2 Gm/100 Ml) 2 gm in 100 mls @ 200 mls/hr IV Q24HR [facility]; Protocol Last Admin: 03/03/20 10:30 Dose: 200 mls/hr Documented by: Azithromycin 500 mg/ Sodium (Chloride) 250 mls @ 250 mls/hr IV Q24HR [facility]; Protocol Labetalol HCl (Labetalol) 10 mg IV Q6H PRN PRN Reason: Hypertension Methylprednisolone Sodium Succinate (Solu-Medrol) 40 mg IV Q8H [facility] Last Admin: 03/03/20 10:29 Dose: 40 mg Documented by: Ondansetron HCl (Zofran) 4 mg IV Q8H PRN PRN Reason: Nausea And Vomiting Sodium Chloride (Sodium Chloride Flush Syringe 10 Ml) 10 ml IV BID [facility] Last Admin: 03/03/20 10:31 Dose: 10 ml Documented by: Sodium Chloride (Sodium Chloride Flush Syringe 10 Ml) 10 ml IV PRN PRN PRN Reason: LINE FLUSH Review of Systems All systems: negative (as per H&P) Physical Examination Vital Signs Temp Pulse Resp BP Pulse Ox 97.8 F 94 H 18 157/91 100 03/01/20 20:26 03/01/20 20:26 03/01/20 20:26 03/01/20 20:26 03/01/20 20:26 Narrative exam: agree with physical examination per primary Results 03/03/20 04:00 03/03/20 05:16 Cardiac Enzymes 03/02/20 03/02/20 Range/Units 10:48 15:03 AST 18 (5-40) units/L Lactate Dehydrogenase 719 H 788 H (91-180) units/L CK-MB (CK-2) 2.7 (0.0-4.0) ng/mL Coagulation 03/02/20 Range/Units 10:48 PT 13.7 (12.2-14.9) Sec. INR 1.06 (0.87-1.13) APTT 31.2 (24.2-36.6) Sec. CBC 03/03/20 Range/Units 04:00 WBC 6.3 (4.5-11.0) K/mm3 RBC 2.60 L (3.65-5.03) M/mm3 Hgb 8.6 L (11.8-15.2) gm/dl Hct 25.8 L (35.5-45.6) % Plt Count 272 (140-440) K/mm3 Comprehensive Metabolic Panel 03/02/20 03/02/20 03/03/20 Range/Units 10:48 15:03 05:16 Sodium 142 (137-145) mmol/L Potassium 4.4 (3.6-5.0) mmol/L Chloride 109.5 H (98-107) mmol/L Carbon Dioxide 26 (22-30) mmol/L BUN 22 H (9-20) mg/dL Creatinine 0.7 L (0.8-1.3) mg/dL Glucose 72 L 91 112 H (75-100) mg/dL Calcium 8.2 L (8.4-10.2) mg/dL Direct Bilirubin 0.3 H (0-0.2) mg/dL Indirect Bilirubin 1.0 mg/dL AST 18 (5-40) units/L ALT 46 (7-56) units/L Alkaline Phosphatase 60 (35-129) units/L Total Protein 6.4 (6.3-8.2) g/dL Albumin 3.7 L (3.9-5) g/dL - Imaging and Cardiology EKG: report reviewed, image reviewed EKG interpretations - Telemetry EKG Rhythm: Sinus Rhythm - EKG Sinus rhythms and dysrhythmias: sinus rhythm Supraventricular dysrhythmia: atrial premature complexe Assessment and Plan Cardiology has been consulted for reported AFib with CVR noted at admission. However, review of admission ECG and telemetry does not show any atrial fibrillation, SR with freq PACs noted. Cont to monitor on telemetry. Cont management of bilateral PNA per primary/ID team. COVID-19 testing is pending, plan to obtain echo pending test results. Will follow. The patient has been seen in conjunction with Dr. Gleason who agrees with the assessment and plan of care. - Patient Problems (1) Bilateral pneumonia Current Visit: Yes Status: Acute Qualifiers: Pneumonia type: due to unspecified organism Lung location: unspecified part of lung Qualified Code(s): J18.9 - Pneumonia, unspecified organism (2) Person under investigation for COVID-19 Current Visit: Yes Status: Acute (3) Diabetes Current Visit: Yes Status: Chronic (4) Tobacco use Current Visit: Yes Status: Chronic
[2020-03-04] MEDS: methylPREDNISolone Sod Succinate 40 MG/1 ML INJ IV SCH ×3 (00:52→16:08)
[2020-03-04 06:01] LABS: Hematocrit 25.9 % (35.5-45.6); Hemoglobin 8.5 gm/dl (11.8-15.2); Mean Corpuscular HGB Conc 33 % (32-34); Mean Corpuscular Volume 100 fl (84-94); Platelet Count 294 K/mm3 (140-440); Red Blood Count 2.59 M/mm3 (3.65-5.03); Red Cell Distribution Width 18.8 % (13.2-15.2)
[2020-03-04 06:09] LABS: Alanine Aminotransferase 41 units/L (7-56); Albumin 3.2 g/dL (3.9-5); BUN/Creatinine Ratio 24; Blood Urea Nitrogen 19 mg/dL (9-20); Calcium 8.1 mg/dL (8.4-10.2); Hemolysis Index 5
[2020-03-04] MEDS: HEPARIN 5,000 UNIT/1 ML VIAL SUB-Q SCH ×2 (08:57→13:13)
[2020-03-04] MEDS: cefTRIAXone/NS 2 GM/100 ML 2 GM/100 ML BAG IV SCH ×2 (08:57→13:13)
[2020-03-04] MEDS: AZITHROMYCIN 250 MG TAB PO SCH ×2 (08:58→13:14)
--- NOTE | 2020-03-04 09:18 | Progress Note ---
Assessment and Plan 74 y/o male smoker with dizziness after smoking a cigarette. 1. Continue IV abx therapy. 2. Smoking cessation. 3. Please obtain NON CONTRAST CT of Chest 4. BP control 5. Agree with echo, follow up results. Subjective Date of service: 03/04/20 Interval history: No acute events. Still on room air. Cardiology consulted now. COVID is negative. Objective Vital Signs - 12hr 03/03/20 03/04/20 22:00 04:11 Temperature 98.6 F Pulse Rate 87 80 Respiratory 20 Rate Blood Pressure 170/86 155/82 O2 Sat by Pulse 100 Oximetry CBC and BMP: 03/04/20 04:52 03/04/20 04:52 ABG, PT/INR, D-dimer: PT/INR, D-dimer PT 13.7 Sec. (12.2-14.9) 03/02/20 10:48 INR 1.06 (0.87-1.13) 03/02/20 10:48 D-Dimer 1526.43 ng/mlDDU (0-234) H 03/02/20 15:03 Abnormal lab findings: Abnormal Labs 03/01/20 03/01/20 03/02/20 20:41 20:41 10:48 RBC 2.92 L Hgb 10.0 L Hct 29.5 L MCV 101 H MCH 34 H RDW 19.5 H Seg Neuts % (Manual) 73.0 H Lymphocytes % (Manual) 8.0 L Monocytes % (Manual) 14.0 H Lymphocytes # (Manual) 0.7 L Monocytes # (Manual) 1.2 H D-Dimer 1362.09 H Chloride 107.4 H BUN 27 H Creatinine Glucose POC Glucose Calcium Total Bilirubin Direct Bilirubin Lactate Dehydrogenase Total Creatine Kinase CK-MB (CK-2) Rel Index C-Reactive Protein Total Protein Albumin Urine WBC (Auto) 03/02/20 03/02/20 03/02/20 10:48 15:03 15:03 RBC Hgb Hct MCV MCH RDW Seg Neuts % (Manual) Lymphocytes % (Manual) Monocytes % (Manual) Lymphocytes # (Manual) Monocytes # (Manual) D-Dimer 1526.43 H Chloride BUN Creatinine Glucose 72 L POC Glucose Calcium Total Bilirubin 1.30 H Direct Bilirubin 0.3 H Lactate Dehydrogenase 719 H 788 H Total Creatine Kinase 28 L CK-MB (CK-2) Rel Index 9.6 H C-Reactive Protein 2.20 H 2.70 H Total Protein Albumin 3.7 L Urine WBC (Auto) 03/02/20 03/02/20 03/03/20 16:52 17:54 04:00 RBC 2.60 L Hgb 8.6 L Hct 25.8 L MCV 99 H MCH 33 H RDW 18.5 H Seg Neuts % (Manual) 87.0 H Lymphocytes % (Manual) 7.0 L Monocytes % (Manual) Lymphocytes # (Manual) 0.4 L Monocytes # (Manual) D-Dimer Chloride BUN Creatinine Glucose POC Glucose 136 H Calcium Total Bilirubin Direct Bilirubin Lactate Dehydrogenase Total Creatine Kinase CK-MB (CK-2) Rel Index C-Reactive Protein Total Protein Albumin Urine WBC (Auto) 18.0 H 03/03/20 03/04/20 03/04/20 05:16 04:52 04:52 RBC 2.59 L Hgb 8.5 L Hct 25.9 L MCV 100 H MCH 33 H RDW 18.8 H Seg Neuts % (Manual) Lymphocytes % (Manual) Monocytes % (Manual) Lymphocytes # (Manual) Monocytes # (Manual) D-Dimer Chloride 109.5 H 109.2 H BUN 22 H Creatinine 0.7 L Glucose 112 H 117 H POC Glucose Calcium 8.2 L 8.1 L Total Bilirubin Direct Bilirubin Lactate Dehydrogenase Total Creatine Kinase CK-MB (CK-2) Rel Index C-Reactive Protein Total Protein 6.2 L Albumin 3.2 L Urine WBC (Auto)
--- NOTE | 2020-03-04 10:39 | Progress Note ---
Assessment and Plan Cardiology has been consulted for reported AFib with CVR noted at admission. However, review of admission ECG and telemetry does not show any atrial fibrillation or atrial flutter since admission, SR with freq PACs noted. COVID-19 testing is negative. tte reviewed - EF 60-65%, mild LVH, diastolic dysfunction, mild to mod AR, mod TR, pulm HTN with RVSP 87mmHg. Currently stable cardiac status. Recommend further eval/management of severe pulmonary HTN per pulmonary team - pulmonary is currently following. Nothing further to add from cardiac perspective at this time. Will follow on as needed basis. Recommend pt follow up in our office with Dr. Gleason within 2 weeks of discharge ([phone]). The patient has been seen in conjunction with Dr. Gleason who agrees with the assessment and plan of care. - Patient Problems (1) Bilateral pneumonia Current Visit: Yes Status: Acute Qualifiers: Pneumonia type: due to unspecified organism Lung location: unspecified part of lung Qualified Code(s): J18.9 - Pneumonia, unspecified organism (2) Person under investigation for COVID-19 Current Visit: Yes Status: Acute (3) Diabetes Current Visit: Yes Status: Chronic (4) Tobacco use Current Visit: Yes Status: Chronic (5) Pulmonary hypertension Current Visit: Yes Status: Chronic Subjective Date of service: 03/04/20 Principal diagnosis: PNA Interval history: pt resting comfortably in bed, no current cardiac complaints. tele reviewed - in SR with PACs, no atrial fibrillation or atrial flutter noted. Objective Last Vital Signs Temp 98.6 F 03/04/20 04:11 Pulse 80 03/04/20 04:11 Resp 20 03/04/20 04:11 BP 155/82 03/04/20 04:11 Pulse Ox 100 03/04/20 04:11 - Physical Examination General: No Apparent Distress HEENT: Positive: PERRL, Normocephaly, Mucus Membranes Moist Neck: Positive: neck supple Cardiac: Positive: Reg Rate and Rhythm, S1/S2 Lungs: Positive: Decreased Breath Sounds Neuro: Positive: Grossly Intact Abdomen: Negative: Tender Skin: Negative: Rash Musculoskeletal: No Pain Extremities: Absent: edema - Labs and Meds Cardiac Enzymes 03/04/20 Range/Units 04:52 AST 18 (5-40) units/L CBC 03/04/20 Range/Units 04:52 WBC 7.3 (4.5-11.0) K/mm3 RBC 2.59 L (3.65-5.03) M/mm3 Hgb 8.5 L (11.8-15.2) gm/dl Hct 25.9 L (35.5-45.6) % Plt Count 294 (140-440) K/mm3 Comprehensive Metabolic Panel 03/04/20 Range/Units 04:52 Sodium 142 (137-145) mmol/L Potassium 4.3 (3.6-5.0) mmol/L Chloride 109.2 H (98-107) mmol/L Carbon Dioxide 24 (22-30) mmol/L BUN 19 (9-20) mg/dL Creatinine 0.8 (0.8-1.3) mg/dL Glucose 117 H (75-100) mg/dL Calcium 8.1 L (8.4-10.2) mg/dL AST 18 (5-40) units/L ALT 41 (7-56) units/L Alkaline Phosphatase 50 (35-129) units/L Total Protein 6.2 L (6.3-8.2) g/dL Albumin 3.2 L (3.9-5) g/dL - Imaging and Cardiology EKG: report reviewed, image reviewed - Telemetry EKG Rhythm: Sinus Rhythm - EKG Sinus rhythms and dysrhythmias: sinus rhythm
--- NOTE | 2020-03-04 12:33 | Progress Note ---
Assessment and Plan Cultures: Blood culture no growth today Urine culture 10-100k CFU's SARS CoV2 PCR negative Assessment: 74 years old male with history of diabetes mellitus, dementia, tobacco abuse, admitted on 03/01/2020 secondary to 5-day history of generalized malaise, fatigue, subjective fever, dry cough, dyspnea on exertion and shortness of breath: #Bilateral pneumonia: SARS-CoV-2 PCR negative. Likely community-acquired pneumonia. #Acute hypoxemic respiratory failure: Initial sats dropped to 83%. Patient currently on 2 L nasal cannula. #Acute UTI: UA consistent with UTI. Recommendations: -Stop Dexamethasone -Pulmonary requesting noncontrasted CT of the chest -Continue ceftriaxone total 5 days and azithromycin total 3 days to cover community-acquired pneumonia and UTI -If clinically improving okay to discharge on Levaquin 750 g p.o. daily total 7 days including antibiotic course inpatient Dr. Mack weems this weekend Will follow Starla Rodriguez MD Infectious Diseases Supervisor [employer] Subjective Date of service: 03/04/20 Principal diagnosis: PNA Interval history: Patient reported feeling much better, minimal cough, on 3 L nasal cannula. Objective - Exam Narrative Exam: General appearance: Alert in NAD pleasant Eyes: anicteric sclerae, moist conjunctivae; no lid-lag; PERRLA HENT: Normocephalic, Atraumatic; normal external ears, nares open, oropharynx clear with moist mucous membranes and no oral thrush; normal hard and soft palate. Neck: supple, tracheal midline, no JVD Lungs: CTA, with normal respiratory effort and no intercostal retractions CV: RRR no murmur Abdomen: Soft, non-tender; no masses or hepatosplenomegaly Extremities: no edema, no cyanosis Skin: No rash. Psych: no agitated Neuro: alert and oriented x 3. Moving all extermities - Constitutional Vitals: Vital Signs Temp Pulse Resp BP Pulse Ox 98.6 F 80 20 155/82 100 03/04/20 04:11 03/04/20 04:11 03/04/20 04:11 03/04/20 04:11 03/04/20 04:11 Temperature -Last 24 Hours Temperature 98.6 F Temperature 98.6 F Temperature 97.5 F - Labs CBC & Chem 7: 03/04/20 04:52 03/04/20 04:52 Labs: Abnormal lab results 03/04/20 03/04/20 Range/Units 04:52 04:52 RBC 2.59 L (3.65-5.03) M/mm3 Hgb 8.5 L (11.8-15.2) gm/dl Hct 25.9 L (35.5-45.6) % MCV 100 H (84-94) fl MCH 33 H (28-32) pg RDW 18.8 H (13.2-15.2) % Chloride 109.2 H (98-107) mmol/L Glucose 117 H (75-100) mg/dL Calcium 8.1 L (8.4-10.2) mg/dL Total Protein 6.2 L (6.3-8.2) g/dL Albumin 3.2 L (3.9-5) g/dL
--- NOTE | 2020-03-04 16:11 | Cat Scan Report ---
CT angio chest INDICATION: MAIN. Short of breath TECHNIQUE: All CT scans at this location are performed using CT dose reduction for ALARA by means of automated e xposure control. 3 plane MIP and/or 3-D reconstructions were produced. COMPARISON: None available. FINDINGS: Mediastinum, donovan and axillae are negative. Upper abdomen is grossly unremarkable. Extensive chronic lung disease, with diffuse emphysema and considerable pleural parenchymal scarring on the left. No evidence of pulmonary embolus. IMPRESSION: 1. Chronic lung disease, with diffuse emphysema and fairly extensive parenchymal scarring in the left lung. 2. Negative for pulmonary embolus. Signer Name: Jean Claude Lincoln MD Signed: 03/04/2020 4:07 PM Workstation Name: [id number]
[2020-03-04 17:01] VITALS: BP 153/79
--- NOTE | 2020-03-04 17:17 | Discharge Summary ---
Providers - Providers Date of Admission: 03/02/20 14:39 Attending physician: JEREMY BRAND MD 03/02/20 14:50 Consult to Physician [CONS] Routine Comment: Consulting Provider: SHERI JOHNSON Physician Instructions: Reason For Exam: Atrial Fib 03/03/20 08:15 Consult to Physician [CONS] Routine Comment: Consulting Provider: SAHIL GUARDADO Physician Instructions: Reason For Exam: PNEUMONIA - Hypoxia, possible COVID 03/03/20 08:16 Consult to Physician [CONS] Routine Comment: Consulting Provider: HARVEY LACEY Physician Instructions: Reason For Exam: SHORTNESS OF BREATH Primary care physician: SYSTEM SOFTWARE DEVELOPER Hospitalization Reason for admission: ANEMIA Condition: Stable Hospital course: 74 YO Male with DM, Vascular Dementia, Cerebral Atherosclerosis, Nicotine Dependence presents to ED for evaluation. Patient states that he has been "not feeling well" over the past 5 days with acutely worsening symptoms over the last 3 days. Patient also acknowledges chest palpitations. Patient acknowledges malaise, fatigue, decreased exercise tolerance, shortness of breath, subjective fever. Pt states that he "felt dizzy" after smoking a cigarette. EMS was notified and upon arrival the patient was found to be in respiratory distress. Patient was found to have a pulse oximetry of 88% on room air and was placed on supplemental oxygen and transported to [facility] for further care and evaluation of the aforementioned symptoms. Patient was seen and evaluated in the emergency department. All lab and imaging studies reviewed. Patient was found to have a pulse oximetry of 87% with exertion and was placed on supplemental oxygen with improvement in symptoms. Patient symptoms are consistent with acute hypoxemic respiratory failure. Patient underwent chest x-ray and was found to have evidence of bilateral pneumonia. Patient admitted to medical floor and initiated on pneumonia protocol as well as coronavirus protocol. The patient was also found to have new onset atrial fibrillation on EKG with a controlled ventricular rate. Cardiology team consulted in ED. Patient denies chills, chest pain, productive cough, skin rash, or recent ill contacts. Pt unsure of coronavirus exposure, but took a coronavirus test 2 days ago which was reported as negative. No prior admission for review. No mediation listed at time of admission for reconciliation. 03/03: Monitor anemia, H/H WITH precipitous drop. Per documentation, saturation improved. Cardiology, pulmonary and ID input as noted. Will discuss with family considering patients mental status. outpatient EGD and Colonoscopy to be deferred to the PCP. 03/04: Patient seen and examined, doing well today, No new fever, extensive discussion about smoking cessation and he verbalized understanding. He will follow with Cardiology and pulmonary outpatient along with GI doctor for EGD. He will be discharged on antibiotics and steroids. CT chest was negative No atrial fibrillation noted on ekg no anticoagluation recommended at this time. (1) Acute hypoxemic respiratory failure (2) Nicotine dependence (3) Atrial fibrillation ruled out (4) Bilateral pneumonia (5) Person under investigation for COVID-19 (6) Anemia- precipitatious drop in hgb (7) Acute cystitis Disposition: - TO HOME OR SELFCARE Time spent for discharge: 35 MINS Core Measure Documentation - Palliative Care Palliative Care/ Comfort Measures: Not Applicable - Core Measures Any of the following diagnoses?: none Exam - Physical Exam Narrative exam: General appearance: Present: No distress - EENT Eyes: Present: PERRL ENT: hearing intact, clear oral mucosa - Neck Neck: Present: supple, normal ROM - Respiratory Respiratory effort: normal Respiratory: bilateral: diminished, rhonchi - Cardiovascular Rhythm: irregularly irregular Heart Sounds: Present: S1 & S2. Absent: rub, click - Extremities Extremities: pulses symmetrical, No edema Peripheral Pulses: within normal limits - Abdominal General gastrointestinal: Present: soft, non-tender, non-distended, normal bowel sounds Male genitourinary: Present: normal - Integumentary Integumentary: Present: clear, warm, dry - Musculoskeletal Musculoskeletal: gait normal, strength equal bilaterally - Psychiatric Psychiatric: appropriate mood/affect, intact judgment & insight - Neurologic Neurologic: CNII-XII intact, moves all extremities - Constitutional Vitals: Temp Pulse Resp BP Pulse Ox 97.9 F 77 17 153/79 99 03/04/20 16:21 03/04/20 16:21 03/04/20 16:21 03/04/20 16:21 03/04/20 16:21 Plan Activity: advance as tolerated, fall precautions Diet: low fat Special Instructions: record daily weights, record daily BP diary, smoking cessation Follow up with: SONIA HEALY MD [Staff Physician] - 7 Days SAHIL GUARDADO MD [Staff Physician] - 7 Days PRIMARY CARE, [Primary Care Provider] - 3-5 Days EDMUNDO CHEN MD [Staff Physician] - 7 Days HARVEY LACEY MD [Staff Physician] - 7 Days Prescriptions: levoFLOXacin [Levaquin] 750 mg PO QDAY #5 tablet Prednisone [predniSONE 10 mg (6-Day Pack, 21 Tabs)] 10 mg PO .TAPER #1 tab.ds.pk
== END 2020-03-04 19:20 | disposition home or self-care (01) | DRG 193 ==
LOC: EDBD → ED 19:49 → 3A 03-02 14:39
PROVIDERS: ADMIT Internal Medicine; ATTEND Internal Medicine
DX: J18.9 Pneumonia, unspecified organism (principal); J96.01 Acute respiratory failure with hypoxia; N30.00 Acute cystitis without hematuria; E11.9 Type 2 diabetes mellitus without complications; F01.50 Vascular dementia, unspecified severity, without behavioral disturbance, psychotic disturbance, mood disturbance, and anxiety; D64.9 Anemia, unspecified; Z20.828 Contact with and (suspected) exposure to other viral communicable diseases; F17.210 Nicotine dependence, cigarettes, uncomplicated; I27.20 Pulmonary hypertension, unspecified; Z79.899 Other long term (current) drug therapy
CPT/HCPCS: 36415; 71045; 71275; 80048; 80053; 80076; 81001; 82550; 82553; 82728; 82947; 82962; 83615; 83735; 83880; 84145; 84439; 84443; 84484; 85007; 85025; 85027; 85379; 85610; 85730; 86140; 87040; 87086; 93005; 93306; 94760; 96365; 96367; G0378; J0456; J0696; J1644; J2920; J7030; J7050; Q9967; U0003